=== PATIENT | male | born 1995 | race Caucasian/White ===

== ENCOUNTER 2016-07-06 07:13 | Emergency (ER) | payer BC ==
--- NOTE | 2016-07-06 07:29 | ED ---
Laceration/Wound HPI - HPI Summary HPI Summary: 21M presents with left foot laceration today. He was cleaning his room when a knife dropped on his foot and cut between his 4th and 5th toe. He denies any loss of ROM or numbness or tingling. He has been able to ambulate on it. His tetanus was a year ago. - History of Current Complaint Stated Complaint: LT FOOT LAC Time Seen by Provider: 07/06/16 07:20 Pain Intensity: 0 - Allergy/Home Medications Allergies/Adverse Reactions: Allergies Allergy/AdvReac Type Severity Reaction Status Date / Time No Known Allergies Allergy Verified 07/06/16 07:27 PMH/Surg Hx/FS Hx/Imm Hx Endocrine/Hematology History: Denies: Hx Anticoagulant Therapy Cardiovascular History: Denies: Hx Hypertension Infectious Disease History: No Infectious Disease History: Denies: Traveled Outside the [place] in Last 30 Days - Family History Known Family History: Negative: Cardiac Disease - Social History Alcohol Use: Occasionally Substance Use Type: Reports: None Smoking Status (MU): Never Smoked Tobacco Review of Systems Negative: Fever Negative: Chest Pain Negative: Shortness Of Breath Positive: Other - laceration left foot All Other Systems Reviewed And Are Negative: Yes Physical Exam Triage Information Reviewed: Yes Vital Signs On Initial Exam: Initial Vitals Temp Pulse Resp BP Pulse Ox 97.2 F 91 20 142/65 99 07/06/16 07:16 07/06/16 07:16 07/06/16 07:16 07/06/16 07:16 07/06/16 07:16 Vital Signs Reviewed: Yes Appearance: Positive: Well-Appearing Skin: Positive: Other - 3cm laceration webbing between 4-5th left toe Head/Face: Positive: Normal Head/Face Inspection Eyes: Positive: Normal, Conjunctiva Clear Respiratory/Lung Sounds: Positive: Clear to Auscultation, Breath Sounds Present Cardiovascular: Positive: Normal, RRR Procedures - Laceration/Wound Repair 1 Location: Other - 4th left toe laceration Anesthesia: Local, 1.0% Length, Depth and Shape: 3cm Betadine Prep?: Yes Irrigated w/ Saline (ccs): 1,000 Laceration/Wound Explored: clean Closure: Single Layer Suture Type: Prolene - 4-0 Number of Sutures: 3 Diagnostics - Vital Signs Vital Signs Temp Pulse Resp BP Pulse Ox 07/06/16 07:24 97.2 F 91 20 142/65 99 07/06/16 07:16 97.2 F 91 20 142/65 99 - Laboratory Lab Statement: Any lab studies that have been ordered have been reviewed, and results considered in the medical decision making process. Laceration Repair Course/Dx - Course Course Of Treatment: 21M presents with laceration to left 4th toe today. cleaned area and placed 3 sutures. did not need tetanus. patient understands and agrees wiht plan - Differential Dx Differental Diagnoses: Abrasion, Avulsion, Laceration - Clinical Impression Provider Diagnoses: Laceration of toe, left Discharge - Discharge Plan Condition: Good Disposition: HOME Patient Education Materials: Care For Your Stitches (ED) Additional Instructions: Take Tylenol or ibuprofen for pain Keep area clean and dry, can place neosporin on area Return to ED or primary in 10-14 days to have sutures removed Return to ED if develop signs of infection such as fever, spreading redness, or pus.
[2016-07-06 08:02] VITALS: BP 145/62
== END 2016-07-06 08:00 | disposition home or self-care (01) ==
LOC: ED 07:13
DX: S91.115A Laceration without foreign body of left lesser toe(s) without damage to nail, initial encounter (principal); W26.0XXA Contact with knife, initial encounter; Y92.003 Bedroom of unspecified non-institutional (private) residence as the place of occurrence of the external cause
CPT/HCPCS: 99282